=== PATIENT | male | born 1965 | race Caucasian/White ===

== ENCOUNTER 2016-11-11 21:01 | Emergency (ER) | payer BC | END 2016-11-11 23:31 | disposition home or self-care (01) | LOC: ER 21:01 | DX: H10.9 Unspecified conjunctivitis (principal); T15.12XA Foreign body in conjunctival sac, left eye, initial encounter; G89.29 Other chronic pain; M54.2 Cervicalgia; G62.9 Polyneuropathy, unspecified; Z98.84 Bariatric surgery status; F17.210 Nicotine dependence, cigarettes, uncomplicated; I25.2 Old myocardial infarction; E11.9 Type 2 diabetes mellitus without complications; Z79.02 Long term (current) use of antithrombotics/antiplatelets; Z79.82 Long term (current) use of aspirin; Z79.899 Other long term (current) drug therapy | CPT/HCPCS: 99282 ==